=== PATIENT | female | born 1960 | race American Indian/Alaskan Native ===

== ENCOUNTER 2023-11-03 08:29 | Emergency (ER) | payer MEDICAID ==
[2023-11-03 09:00] VITALS: BP 103/50; PULSE 59
[2023-11-03] MEDS ORDERED: Sodium Chloride 0.9% 10 ML Syringe FLUSH PRN (09:01)
[2023-11-03] MEDS: Ondansetron 4 MG/2 ML SDV IVPUSH ONE (09:07)
[2023-11-03] MEDS: Sodium Chloride 0.9% 1,000 ML IV ONE (09:08)
[2023-11-03 09:29] LABS: APPEARANCE,URINE SLIGHTLY CLOUDY (CLEAR); BILIRUBIN,URINE NEGATIVE (NEGATIVE); COLOR,URINE YELLOW (YELLOW); GLUCOSE,URINE NEGATIVE (NEGATIVE); KETONES,URINE NEGATIVE (NEGATIVE); LEUKOCYTE ESTERASE,URINE NEGATIVE (NEGATIVE); NITRITE,URINE NEGATIVE (NEGATIVE); OCCULT BLOOD,URINE NEGATIVE (NEGATIVE); PROTEIN,URINE NEGATIVE (NEGATIVE)
[2023-11-03 09:33] LABS: BASOPHILS PERCENT AUTO 0.5 % (0.0-1.0); EOSINOPHILS PERCENT AUTO 3.2 % (1.0-3.0); HEMATOCRIT 39.8 % (37.0-47.0); HEMOGLOBIN 12.7 g/dL (12.0-16.0); LYMPHOCYTES PERCENT AUTO 30.6 % (20.5-50.1); MEAN CORPUSCULAR HEMOGLOBIN 29.5 pg (27.0-34.0); MEAN CORPUSCULAR HGB CONC 31.9 g/dL (33.0-35.0); MEAN CORPUSCULAR VOLUME 92.6 fL (80-100); MONOCYTES PERCENT AUTO 5.7 % (2-8); PLATELET COUNT,PLT 286 10^3/uL (150-450); WHITE BLOOD CELL COUNT,WBC 6.3 10^3/uL (5.0-10.0)
[2023-11-03 09:41] LABS: A/G RATIO 0.9; ALBUMIN 3.6 g/dL (3.4-5.0); BILIRUBIN TOTAL 0.8 mg/dL (0.2-1.0); BUN/CREATININE RATIO 14.3 (No establ ref range); CALCIUM 8.7 mg/dL (8.5-10.1); CREATININE 0.91 mg/dL (0.55-1.02); EST CRCL DRUG DOSING (CG) 58.42 mL/min; PROTEIN TOTAL,TP 7.4 g/dL (6.4-8.2)
[2023-11-03 09:46] LABS: LACTIC ACID 1.5 mmol/L (0.4-2.0)
[2023-11-03 10:04] LABS: INR 0.9 (0.9-1.2); PROTHROMBIN TIME 9.7 SEC (9.0-12.0); PTT,PARTIAL THROMBOPLSTIN TIME 23.2 SEC (22.0-34.0)
[2023-11-03] MEDS: GI Cocktail Oral Solution 30 ML PO ONE (10:15)
== END 2023-11-03 11:39 | disposition home or self-care (01) ==
LOC: DL.ED 08:29
DX: K30 Functional dyspepsia (principal); Z79.899 Other long term (current) drug therapy; I10 Essential (primary) hypertension
CPT/HCPCS: 36415; 80053; 81003; 82150; 83605; 83690; 83735; 84484; 85025; 85610; 85730; 93005; 93010; 96361; 96374; 99284; 99284-25; A9270-GY; J2405; J7030